=== PATIENT | female | born 1980 | race Two or more races ===

== ENCOUNTER 2022-04-18 19:03 | Emergency (ER) | payer MEDICAID ==
[~2022-04-18] VITALS: Ht 160 cm; Wt 63.5 kg
[2022-04-18] MEDS ORDERED: FLUORESCEIN SODIUM OPHTH 1 EA STRIP ONE (22:30)
[2022-04-18] MEDS ORDERED: TETRAcaine 5 ML BOTTLE EACHEYE ONE (22:30)
[2022-04-18] MEDS ORDERED: FLUORESCEIN SODIUM OPHTH 1 EA STRIP OP ONE (22:30)
--- NOTE | 2022-04-18 22:30 | NUR ---
BIBS C/O RIGHT EYE PAIN, IRRITATION AND REDNESS X3DAYS . VISUAL ACUITY B: 20/20 L:20/20 R:20/20. PT AWAKE AND ALERT X4 BREATHING EVEN ANDN UNLABORED.
[2022-04-18] MEDS ORDERED: KETO5DRO83 RIGHTEYE ×2 (23:30→23:31)
--- NOTE | 2022-04-18 23:37 | NUR ---
Patient discharged to home in stable condition. Written and verbal after care instructions given. Patient verbalizes understanding of instruction.
[2022-04-18 23:38] VITALS: BP 126/70
== END 2022-04-18 23:59 | disposition home or self-care (01) ==
LOC: ER 19:06
DX: H11.31 Conjunctival hemorrhage, right eye (principal)

== ENCOUNTER 2024-02-24 21:00 | Emergency (ER) | payer MEDICAID ==
[~2024-02-24] VITALS: Ht 149.9 cm; Wt 65.8 kg
[~2024-02-24 21:00] MED LIST: KETO5DRO83 RIGHTEYE
[2024-02-24 22:38] LABS: BASOPHILS # (AUTO) 0.1 K/uL (0.0-0.2); EOSINOPHILS # (AUTO) 0.2 K/uL (0.0-0.7); HEMATOCRIT 44 % (33-45); HEMOGLOBIN 14.4 g/dL (11.5-14.8); LYMPHOCYTES # (AUTO) 2.3 K/uL (0.8-4.8); LYMPHOCYTES % (AUTO) 24.6 % (20.0-44.0); MEAN CORPUSCULAR HEMOGLOBIN 26 PG (26.0-33.0); MEAN CORPUSCULAR HGB CONC 33 g/dl (31.0-36.0); MEAN CORPUSCULAR VOLUME 81 fL (82-100); MONOCYTES # (AUTO) 0.7 K/uL (0.1-1.30); MONOCYTES % (AUTO) 7.1 % (2.0-12.0); NEUTROPHILS % (AUTO) 65.3 % (43.0-81.0); PLATELET COUNT (AUTO) 340 K/uL (150-450); RED BLOOD CELL COUNT(AUTO) 5.43 MIL/uL (4.0-5.2); RED CELL DISTRIBUTION WIDTH 14.5 % (11.5-15.0); WHITE BLOOD COUNT (AUTO) 9.2 K/uL (4.3-11.0)
[2024-02-24 22:43] LABS: APPEARANCE,URINE SLIGHTLY CLOUDY (CLEAR); BILIRUBIN,URINE NEGATIVE (NEGATIVE); BLOOD, URINE NEGATIVE Ery/uL (NEGATIVE); COLOR,URINE YELLOW (YELLOW); KETONES,URINE NEGATIVE (NEGATIVE); LEUKOCYTE ESTERASE ,URINE NEGATIVE (NEGATIVE); NITRITE, URINE NEGATIVE (NEGATIVE); PROTEIN,URINE NEGATIVE (NEGATIVE); UGLUCOSE NEGATIVE (NEGATIVE); UROBILINOGEN,URINE 0.2 EU/dL (0.2)
[2024-02-24 22:48] LABS: PREGNANCY TEST URINE QUAL NEGATIVE (NEGATIVE)
[2024-02-24 22:57] LABS: ADD URINE CULTURE NO; BACTERIA,URINE 1+ /HPF (None Seen); RBC,URINE NONE SEEN /HPF (0-2); WBC,URINE 0-2 /HPF (0-3)
[2024-02-24 22:58] LABS: CALCIUM, SERUM 8.9 mg/dL (8.5-10.1); CREATININE 0.8 mg/dL (0.6-1.3); POTASSIUM 3.9 mmol/L (3.5-5.1)
[2024-02-24] MEDS: KETOROLAC TROMETHAMINE 15 MG/ML VIAL IV ONE (23:00)
[2024-02-24 23:06] LABS: ALBUMIN 3.6 g/dL (3.4-5.0); BILIRUBIN,DIRECT 0.1 mg/dL (0.0-0.2); BILIRUBIN,TOTAL 0.4 mg/dL (0.2-1.0); TOTAL PROTEIN, SERUM 7.7 g/dL (6.4-8.2)
[2024-02-24] MEDS ORDERED: FAMOTIDINE/PF INJ 20 MG/2 ML VIAL IV ONE (23:07)
[2024-02-24] MEDS: IV NS 0.9% 1,000 ML BAG IV ONE (23:08)
[2024-02-24] MEDS: FAMOTIDINE/PF INJ 20 MG/2 ML VIAL IV SCH (23:14)
[2024-02-25 00:25] VITALS: BP 132/81; TEMP 97.8; O2SAT 99
[2024-02-25] MEDS ORDERED: DOCU-160 PO (00:53)
== END 2024-02-25 01:03 | disposition home or self-care (01) ==
LOC: ER 21:04
DX: R10.84 Generalized abdominal pain (principal); K59.00 Constipation, unspecified; R10.2 Pelvic and perineal pain; K62.5 Hemorrhage of anus and rectum; Z98.51 Tubal ligation status
CPT/HCPCS: 99285; 74176; 96374; 71045; 96361; 96375; 85025; 80048; 87086; 83690; 80076; 84703; 81001; 36415; 84702; J3490; J7030; J1885